=== PATIENT | male | born 1975 | race Caucasian/White ===

== ENCOUNTER 2019-09-24 13:10 | Outpatient (CLI) | payer OTHER ==
[~2019-09-24] VITALS: Ht 190.5 cm; Wt 90.7 kg
[2019-09-24 13:26] VITALS: BP 139/72
[2019-09-24] MEDS ORDERED: no medication (13:27)
--- NOTE | 2019-09-24 20:15 | Consultation ---
DATE OF CONSULTATION: 09/24/2019 CONSULTING PHYSICIAN: Michael Perez M.D. CHIEF COMPLAINT: Chronic diarrhea. HISTORY OF PRESENT ILLNESS: This is a very healthy 44-year-old male, who has been having diarrhea since 2001, and never had a full colonoscopy, but recently started having rectal bleeding on top of diarrhea and was referred for colonoscopy. PAST MEDICAL HISTORY: IBS. PAST SURGICAL HISTORY: Left shoulder surgery. MEDICATIONS: None. ALLERGIES: No known allergies. FAMILY HISTORY: Father had esophageal cancer, mother had esophageal dysplasia. SOCIAL HISTORY: The patient drinks alcohol socially. Denies any IV drug abuse. REVIEW OF SYSTEMS: Positive for diarrhea and rectal bleeding. PHYSICAL EXAMINATION: VITAL SIGNS: Temperature 98.7, blood pressure 139/72, pulse 70, and respirations 20. HEENT: Normocephalic and atraumatic. Sclerae icterus. NECK: Supple. No lymphadenopathy. CARDIOVASCULAR: Regular rate and rhythm. Plus S1 and S2. LUNGS: Clear to auscultation bilaterally. ABDOMEN: Positive bowel sounds. Soft and nontender. No rebound. No guarding. No peritoneal sign. EXTREMITIES: No cyanosis, clubbing, or edema. ASSESSMENT AND PLAN: This is a 44-year-old male with family history of extensive esophageal problem. Father had esophageal cancer and mother had esophageal dysplasia, now with chronic diarrhea and rectal bleeding. Differential diagnosis would be lactose intolerance, which the patient's doubts can be celiac disease, microscopic colitis, inflammatory bowel disease, and irritable bowel syndrome. Our plan will be to send blood test for celiac panel. The patient was advised to stay away from milk products. Plan to do an endoscopy and colonoscopy. Colonoscopy for evaluation of chronic diarrhea and endoscopy for given family history of esophageal malignancy. Michael Perez M.D. DR: KURTIS JOB#: [id number] CC:
== END 2019-09-24 15:10 | disposition home or self-care (01) ==
LOC: PAN 13:10
DX: R19.7 Diarrhea, unspecified (principal); K62.5 Hemorrhage of anus and rectum
CPT/HCPCS: G0463